=== PATIENT | female | born 1950 | race Caucasian/White ===

== ENCOUNTER 2021-08-18 04:03 | Observation (INO) | payer OTHER ==
[~2021-08-18] VITALS: Ht 170.2 cm; Wt 80.7 kg
[~2021-08-18 04:03] MED LIST: ACET-73 PO; GLUMETZA; GLYB5TAB4 PO; IBUP-1970 PO; ROSU20TA2 PO; VALS40TA6 PO
[2021-08-18 04:14] VITALS: BP_SYST 165
--- NOTE | 2021-08-18 04:14 | NUR ---
Patient to ER bed 7 to gown for evaluation. Side rails up. Triage at the bedside by Shaista LEMONS
[2021-08-18] MEDS ORDERED: OXYMETAZOLINE HCL 0.05% NASAL SPRAY NS ONE ×2 (04:15→04:21)
--- NOTE | 2021-08-18 04:20 | NUR ---
DR. AMOS AT BEDSIDE.
--- NOTE | 2021-08-18 04:29 | NUR ---
DR. AMOS AT BEDSIDE GIVING MEDICATION.
--- NOTE | 2021-08-18 04:34 | NUR ---
SECOND TAMPONADE/NASAL PACKING INTO LEFT NARE PLACED BY DR. AMOS. ONE TAMPONADE/NASAL PACKING REMAINS IN RIGHT NARE.
--- NOTE | 2021-08-18 04:48 | NUR ---
BLOOD SUGAR 92. DR. AMOS AWARE.
--- NOTE | 2021-08-18 05:21 | NUR ---
PATIENT MAINTAINS NO SIGNS OF ACTIVE BLEEDING AT THIS TIME. TRANSFERRED TO BED 5 WITHOUT INCIDENT.
--- NOTE | 2021-08-18 07:33 | NUR ---
RECEIVED REPORT FROM CRISTO VALDEZ. PATIENT WAITING TO BE SEEN BY DR GREGORY AT 0800.
[2021-08-18] MEDS ORDERED: ONDANSETRON HCL 4 MG/2 ML VIAL IVP PRN (09:00)
--- NOTE | 2021-08-18 09:05 | NUR ---
covid swab done. walked to lab.
[2021-08-18] MEDS ORDERED: DULA3PEN (09:17)
[2021-08-18] MEDS ORDERED: ASPI-989 PO (09:17)
[2021-08-18] MEDS ORDERED: BUSP5TAB3 PO (09:17)
[2021-08-18] MEDS ORDERED: AMLO2.5T2 PO (09:17)
[2021-08-18] MEDS ORDERED: CHLO25TA2 PO (09:17)
[2021-08-18] MEDS ORDERED: METF-833 PO (09:17)
[2021-08-18] MEDS ORDERED: CARV6.2554 PO (09:17)
[2021-08-18] MEDS ORDERED: INSNLG7030 SUBCUT (09:21)
[2021-08-18 09:22] LABS: BASOPHILS # (AUTO) 0.1 K/uL (0.0-0.2); BASOPHILS % (AUTO) 0.7 % (0.0-2.0); EOSINOPHILS # (AUTO) 0.2 K/uL (0.0-0.4); EOSINOPHILS % (AUTO) 1.9 % (0.0-4.0); HEMATOCRIT 36.7 % (36-48); HEMOGLOBIN 12.7 g/dL (12.0-16.0); LYMPHOCYTES % (AUTO) 22.7 % (20.5-51.5); MEAN CORPUSCULAR HEMOGLOBIN 30 pg (27-31); MEAN CORPUSCULAR HGB CONC 35 % (32-36); MEAN CORPUSCULAR VOLUME 86 fL (79.0-98.0); MONOCYTES # (AUTO) 0.3 K/uL (0.0-1.0); MONOCYTES % (AUTO) 3.9 % (1.7-9.3); NEUTROPHILS # (AUTO) 6.3 K/uL (1.8-7.7); NEUTROPHILS % (AUTO) 70.8 % (40.0-70.0); PLATELET COUNT (AUTO) 148 K/uL (130-430); RED BLOOD CELL COUNT(AUTO) 4.28 MIL/uL (4.2-6.2); RED CELL DISTRIBUTION WIDTH 13.9 % (9.0-15.0); WHITE BLOOD COUNT (AUTO) 8.9 K/uL (4.8-10.8)
--- NOTE | 2021-08-18 09:23 | NUR ---
Admit bed requested Patient will be admitted to care of . Admitted to telemetry unit. Diagnosis Epistaxis Inpatient (Yes or No) y Observation (Yes or No) n Orientation concerns or request close to nursing station (Yes or No) n Covid Status pending On vent or bipap n Isolation requirements n Needs a sitter n From Home (Yes or if No enter name of facility) home Requires Dialysis (Yes or No) n Med Rec Completed (Yes of No) yes
[2021-08-18 09:43] LABS: PROTHROMBIN TIME 10.9 SECS (9.5-12.5)
[2021-08-18 09:52] LABS: CREATININE 1.08 mg/dL (0.55-1.30); POTASSIUM 3.8 mmol/L (3.5-5.1)
--- NOTE | 2021-08-18 13:14 | NUR ---
Patient will be admitted to care of DR GREGORY. Admitted to [facility] unit. Will go to room 100B. Belongings list completed. Complete and up to date summary report printed. SBAR report to be given at bedside with opportunity for questions.
[2021-08-18 13:33] VITALS: BP_SYST 135
--- NOTE | 2021-08-18 13:45 | NUR ---
Opening Notes Received patient via [facility], stable at this time. Pt is ambulatory, able to transfer from [facility] to bed, steady gait. Pt is awake, alert and oriented x4. No resp distress noted. Breathing is even and unlabored, RA. Pt denies any pain at this time. No signs of epistaxis, no abnormal bleeding noted. IV site on left wrist 20 gauge intact, saline lock, C/D/I. Pt was educated on use of call light and to ask for help when needed. Pt successful in return demo. Pt is noted with left undereye sutures d/t s/p lesion removal, sutures are C/D/I. All needs met at this time. Safety and fall precautions in place. Bed in lowest position, locked. Will continue to monitor.
[2021-08-18] MEDS ORDERED: amLODIPine BESYLATE 5 MG TABLET PO ONE (14:45)
[2021-08-18] MEDS ORDERED: CARVEDILOL 6.25 MG TABLET (COREG) PO ONE (14:45)
[2021-08-18] MEDS ORDERED: CHLORTHALIDONE 25 MG TABLET (HYGROTON) PO ONE (15:00)
[2021-08-18 16:00] VITALS: BP_SYST 133
--- NOTE | 2021-08-18 16:00 | NUR ---
Notes Patient is sitting up in bed, resting. No signs of epistaxis/abnormal bleeding. No resp distress noted. Breathing is even and unlabored. Pt denies any pain. Grand daughter by bedside. Will continue to monitor.
[2021-08-18] MEDS: INSULIN REGULAR, HUMAN 100 UNITS/ML, 10 ML VIAL (humuLIN R) SUBCUT PRN ×2 (17:40→22:27)
--- NOTE | 2021-08-18 18:55 | NUR ---
Closing Notes Patient is awake, alert and oriented x4. No resp distress noted. Breathing is even and unlabored, RA. Pt denies any pain at this time. Granddaughter by bedside. No signs of epistaxis/abnormal bleeding. IV site on left wrist 20 gauge intact. No needs at this time. Pending labs tomorrow. All needs met. Safety and fall precautions in place. Bed in lowest position, alarm on, locked. Will continue to monitor.
[2021-08-18 20:00] VITALS: BP_SYST 128
[2021-08-18] MEDS ORDERED: ROSUVASTATIN CALCIUM 5 MG/TAB (CRESTOR) PO SCH (21:00)
[2021-08-18] MEDS ORDERED: ATORVASTATIN 20 MG TABLET PO SCH (21:00)
[2021-08-18] MEDS: CARVEDILOL 6.25 MG TABLET (COREG) PO SCH (22:23)
[2021-08-19 06:22] VITALS: BP_SYST 120
[2021-08-19 06:22] LABS: BASOPHILS % (AUTO) 0.4 % (0.0-2.0); EOSINOPHILS # (AUTO) 0.2 K/uL (0.0-0.4); EOSINOPHILS % (AUTO) 2.7 % (0.0-4.0); HEMATOCRIT 34.9 % (36-48); HEMOGLOBIN 12.2 g/dL (12.0-16.0); LYMPHOCYTES % (AUTO) 35.6 % (20.5-51.5); MEAN CORPUSCULAR HEMOGLOBIN 30 pg (27-31); MEAN CORPUSCULAR HGB CONC 35 % (32-36); MEAN CORPUSCULAR VOLUME 85 fL (79.0-98.0); MONOCYTES # (AUTO) 0.4 K/uL (0.0-1.0); MONOCYTES % (AUTO) 6.7 % (1.7-9.3); NEUTROPHILS # (AUTO) 3.1 K/uL (1.8-7.7); NEUTROPHILS % (AUTO) 54.6 % (40.0-70.0); PLATELET COUNT (AUTO) 126 K/uL (130-430); RED BLOOD CELL COUNT(AUTO) 4.12 MIL/uL (4.2-6.2); WHITE BLOOD COUNT (AUTO) 5.7 K/uL (4.8-10.8)
[2021-08-19 06:44] LABS: CALCIUM 9.1 mg/dL (8.4-11.0); CREATININE 1.01 mg/dL (0.55-1.30); PHOSPHORUS 3.9 mg/dL (2.7-4.5); POTASSIUM 3.8 mmol/L (3.5-5.1)
[2021-08-19 08:14] VITALS: BP_SYST 112
[2021-08-19] MEDS ORDERED: amLODIPine BESYLATE 5 MG TABLET PO SCH (09:00)
[2021-08-19] MEDS ORDERED: CHLORTHALIDONE 25 MG TABLET (HYGROTON) PO SCH (09:00)
[2021-08-19] MEDS: CARVEDILOL 6.25 MG TABLET (COREG) PO SCH (09:48)
[2021-08-19 11:20] VITALS: BP_SYST 112
--- NOTE | 2021-08-19 13:52 | NUR ---
Patient was DC, stable. No episodes of nose bleeding or chest pain. patients sutures removed. No complaints, education given and understood.
== END 2021-08-19 11:35 | disposition home or self-care (01) ==
LOC: SED 04:03 → STU 09:00 → INTOOBSV 09:00 → STU 11:28 → SMU 11:45
PROVIDERS: ADMIT Student in an Organized Health Care Education/Training Program; ATTEND Student in an Organized Health Care Education/Training Program
DX: R04.0 Epistaxis (principal); Z20.822 Contact with and (suspected) exposure to COVID-19; I10 Essential (primary) hypertension; E11.9 Type 2 diabetes mellitus without complications; E78.5 Hyperlipidemia, unspecified; F41.9 Anxiety disorder, unspecified; Z79.82 Long term (current) use of aspirin; Z79.899 Other long term (current) drug therapy
CPT/HCPCS: 36415 ×2; 80048 ×2; 82962 ×2; 83735; 84100; 85025 ×2; 85610; 85730; 87426; 99284; G0378; J1815

== ENCOUNTER 2022-08-30 14:12 | Emergency (ER) | payer OTHER ==
[~2022-08-30] VITALS: Ht 172.7 cm; Wt 76.2 kg
[~2022-08-30 14:12] MED LIST changes: -ACET-73 PO; +AMLO2.5T2 PO; +ASPI-989 PO; +BUSP5TAB3 PO; +CARV6.2554 PO; +CHLO25TA2 PO; +DULA3PEN; -GLUMETZA; -GLYB5TAB4 PO; -IBUP-1970 PO; +INSNLG7030 SUBCUT; +METF-833 PO; -VALS40TA6 PO
[2022-08-30 14:15] VITALS: BP_SYST 137; PULSE 80; RESP 18; TEMP 97.3; O2SAT 99
[2022-08-30] MEDS ORDERED: ONDANSETRON HCL 4 MG/2 ML VIAL IVP ONE ×2 (15:45→17:15)
[2022-08-30] MEDS ORDERED: NACL 0.9% 1,000 ML IV ONE (15:45)
[2022-08-30] MEDS ORDERED: MORPHINE 4 MG INJ. 4 MG/ML VIAL IVP ONE ×2 (15:45→17:15)
[2022-08-30 16:09] LABS: BILIRUBIN,URINE NEGATIVE (NEGATIVE); COLOR,URINE YELLOW (YELLOW); GLUCOSE,URINE NEGATIVE (NEGATIVE); KETONES,URINE NEGATIVE (NEGATIVE); NITRITE, URINE NEGATIVE (NEGATIVE); PROTEIN URINE NEGATIVE (NEGATIVE); UROBILINOGEN,URINE 0.2 (0.2-1.0)
[2022-08-30 16:17] LABS: BLOOD, URINE TRACE (NEGATIVE); CLARITY/URINE HAZY (CLEAR)
[2022-08-30 16:18] LABS: BACTERIA,URINE FEW /HPF (None Seen); LEUKOCYTE ESTERASE ,URINE TRACE (NEGATIVE); MUCUS,URINE None Seen /LPF (None Seen); RBC,URINE 0-3 /HPF (0-3)
[2022-08-30 16:21] LABS: BASOPHILS % (AUTO) 0.5 % (0.0-2.0); EOSINOPHILS # (AUTO) 0.1 K/uL (0.0-0.4); HEMOGLOBIN 13.4 g/dL (12.0-16.0); LYMPHOCYTES # (AUTO) 1.8 K/uL (1.0-5.5); LYMPHOCYTES % (AUTO) 21.8 % (20.5-51.5); MEAN CORPUSCULAR HEMOGLOBIN 28 pg (27-31); MEAN CORPUSCULAR HGB CONC 33 % (32-36); MEAN CORPUSCULAR VOLUME 87 fL (79.0-98.0); MONOCYTES # (AUTO) 0.5 K/uL (0.0-1.0); MONOCYTES % (AUTO) 5.7 % (1.7-9.3); NEUTROPHILS # (AUTO) 5.9 K/uL (1.8-7.7); PLATELET COUNT (AUTO) 124 K/uL (130-430); RED BLOOD CELL COUNT(AUTO) 4.72 MIL/uL (4.2-6.2); WHITE BLOOD COUNT (AUTO) 8.3 K/uL (4.8-10.8)
[2022-08-30 16:31] LABS: ALANINE AMINOTRANSFERASE 16 U/L (12-78); ALBUMIN 3.8 g/dL (3.4-4.8); ANION GAP 6 (5-15); ASPARTATE AMINOTRANSFERASE 18 U/L (10-37); CALCIUM 9.3 mg/dL (8.4-11.0); CHLORIDE 104 mmol/L (98-107); CREATININE 1.34 mg/dL (0.55-1.30); GLUCOSE 127 mg/dL (74-106); TOTAL BILIRUBIN 0.7 mg/dL (0.0-1.0); UREA NITROGEN, BLOOD 15 mg/dL (8-21)
[2022-08-30 16:32] LABS: GFR AFRICAN AMERICAN 50 mL/min (>90)
[2022-08-30] MEDS ORDERED: CEPH-548 PO (17:14)
[2022-08-30] MEDS ORDERED: cephALEXin 500 MG CAPSULE PO ONE (17:15)
[2022-08-30] MEDS ORDERED: PHE25 PO (17:22)
[2022-08-30] MEDS ORDERED: METOCLOPRAMIDE HCL 10 MG/2 ML VIAL IVP ONE (17:30)
[2022-08-30 18:18] VITALS: BP_SYST 148; PULSE 85; RESP 21; TEMP 97.8; O2SAT 98
== END 2022-08-30 18:18 | disposition home or self-care (01) ==
LOC: SED 14:12
DX: N39.0 Urinary tract infection, site not specified (principal); G89.29 Other chronic pain; R42 Dizziness and giddiness; E86.0 Dehydration; R11.0 Nausea; E11.9 Type 2 diabetes mellitus without complications; I10 Essential (primary) hypertension; Z79.4 Long term (current) use of insulin; Z79.899 Other long term (current) drug therapy; Z20.822 Contact with and (suspected) exposure to COVID-19
CPT/HCPCS: 99285; 96374; 96375; 70450; 71045; 96361; 87426; 80053; 81000; 83880; 85025; 84484; 36415; 93005; 76376; 87804 ×2; J2765; J2405; J2270; J7030

== ENCOUNTER 2022-09-18 14:23 | Emergency (ER) | payer OTHER ==
[~2022-09-18] VITALS: Ht 170.2 cm; Wt 76.2 kg
[2022-09-18 14:23] VITALS: BP_SYST 116; PULSE 75; RESP 18; TEMP 97.8; O2SAT 98
[~2022-09-18 14:23] MED LIST changes: +CEPH-548 PO; +PHE25 PO
--- NOTE | 2022-09-18 15:06 | NUR ---
Patient coming from home BIB daughter. Chief Complaint: Panic attacks change of RX x2d to effexor unknown dosage and atarax 25mg at 10am. Patient reports taking xanax at 10am this am dosage 0.5 mg due to panic attack return. Patient reports feeling nauseated. Patient reports having an epidural for back pain wednesday, currently having back pain 08/31. Patient placed in bed with rails up and placed on monitor.
[2022-09-18 15:10] VITALS: BP_SYST 160; PULSE 70; TEMP 96.9; O2SAT 97
--- NOTE | 2022-09-18 15:13 | NUR ---
ER Dr. Gil at bedside examining patient.
[2022-09-18] MEDS ORDERED: METOCLOPRAMIDE HCL 10 MG TABLET PO ONE (15:30)
[2022-09-18] MEDS ORDERED: LORazepam 2 MG/ML VIAL IM ONE (15:30)
--- NOTE | 2022-09-18 15:37 | NUR ---
Per Dr. Gil order, patient given Reglan 5mg and Ativan 1mg. Patient denies allergies to these medications, states allergy to Sulfa medications. Patient agreed to the administration prior to giving. Patient tolerated well.
[2022-09-18] MEDS ORDERED: ALPRAZolam 0.25 MG TABLET PO ONE (16:00)
--- NOTE | 2022-09-18 16:16 | NUR ---
Patient states ready to go home. Dr. Gil notified. Dr. Gil requested hold of the Xanax order. Documentation input.
--- NOTE | 2022-09-18 16:20 | NUR ---
Patient given written and verbal discharge instructions and verbalizes understanding. ER MD Gli discussed with patient the results and treatment provided. Patient in stable condition. ID arm band removed. Patient educated on pain management and to follow up with PMD. Opportunity for questions provided and answered. Medication side effect fact sheet provided.
== END 2022-09-18 16:20 | disposition home or self-care (01) ==
LOC: SED 14:23
DX: F41.9 Anxiety disorder, unspecified (principal); R11.0 Nausea; E11.9 Type 2 diabetes mellitus without complications; I10 Essential (primary) hypertension; Z79.4 Long term (current) use of insulin; Z79.899 Other long term (current) drug therapy
CPT/HCPCS: 99283; 96372; J8597; J2060

== ENCOUNTER 2023-05-26 10:53 | Emergency (ER) | payer MEDICARE, OTHER ==
[~2023-05-26] VITALS: Ht 170.2 cm; Wt 89.8 kg
[2023-05-26 11:04] VITALS: BP_SYST 141; PULSE 89; RESP 16; TEMP 97.3; O2SAT 96
[2023-05-26] MEDS: ACETAMINOPHEN 325 MG TABLET PO ONE (13:07)
[2023-05-26 13:10] VITALS: BP_SYST 129; PULSE 65; RESP 17; TEMP 97.7; O2SAT 98
== END 2023-05-26 13:17 | disposition home or self-care (01) ==
LOC: SED 10:53
DX: S63.91XA Sprain of unspecified part of right wrist and hand, initial encounter (principal); S63.92XA Sprain of unspecified part of left wrist and hand, initial encounter; S50.12XA Contusion of left forearm, initial encounter; E11.9 Type 2 diabetes mellitus without complications; I10 Essential (primary) hypertension; Z90.49 Acquired absence of other specified parts of digestive tract; Z90.710 Acquired absence of both cervix and uterus; W18.39XA Other fall on same level, initial encounter; Y93.89 Activity, other specified; Y92.89 Other specified places as the place of occurrence of the external cause; Y99.8 Other external cause status
CPT/HCPCS: 73090; 99284

== ENCOUNTER 2023-07-18 21:46 | Inpatient (IN) | payer MEDICARE ==
[~2023-07-18] VITALS: Ht 170.2 cm; Wt 88.9 kg
[2023-07-18 22:00] VITALS: BP_SYST 101; PULSE 67; RESP 20; TEMP 97; O2SAT 95
[2023-07-18 22:37] LABS: BILIRUBIN,URINE NEGATIVE (NEGATIVE); BLOOD, URINE NEGATIVE (NEGATIVE); CLARITY/URINE CLEAR (CLEAR); COLOR,URINE YELLOW (YELLOW); GLUCOSE,URINE NEGATIVE (NEGATIVE); KETONES,URINE TRACE (NEGATIVE); LEUKOCYTE ESTERASE ,URINE 2+ (NEGATIVE); NITRITE, URINE NEGATIVE (NEGATIVE); PROTEIN URINE TRACE (NEGATIVE)
[2023-07-18 22:47] LABS: BACTERIA,URINE RARE /HPF (None Seen); RBC,URINE 0-3 /HPF (0-3)
[2023-07-18 22:48] LABS: MUCUS,URINE 1+ /LPF (None Seen)
[2023-07-18 23:13] LABS: BASOPHILS # (AUTO) 0.2 K/uL (0.0-0.2); BASOPHILS % (AUTO) 1.9 % (0.0-2.0); EOSINOPHILS # (AUTO) 0.2 K/uL (0.0-0.4); EOSINOPHILS % (AUTO) 2.5 % (0.0-4.0); HEMATOCRIT 41.2 % (36-48); HEMOGLOBIN 14.1 g/dL (12.0-16.0); LYMPHOCYTES # (AUTO) 1.7 K/uL (1.0-5.5); LYMPHOCYTES % (AUTO) 20.3 % (20.5-51.5); MEAN CORPUSCULAR HEMOGLOBIN 29 pg (27-31); MEAN CORPUSCULAR HGB CONC 34 % (32-36); MEAN CORPUSCULAR VOLUME 85 fL (79.0-98.0); MONOCYTES # (AUTO) 0.5 K/uL (0.0-1.0); MONOCYTES % (AUTO) 5.9 % (1.7-9.3); NEUTROPHILS # (AUTO) 5.8 K/uL (1.8-7.7); NEUTROPHILS % (AUTO) 69.4 % (40.0-70.0); PLATELET COUNT (AUTO) 99 K/uL (130-430); RED BLOOD CELL COUNT(AUTO) 4.85 MIL/uL (4.2-6.2); RED CELL DISTRIBUTION WIDTH 14.7 % (9.0-15.0); WHITE BLOOD COUNT (AUTO) 8.3 K/uL (4.8-10.8)
[2023-07-18 23:28] LABS: ALANINE AMINOTRANSFERASE 23 U/L (12-78); ANION GAP 10 (5-15); ASPARTATE AMINOTRANSFERASE 37 U/L (10-37); BILIRUBIN,DIRECT 0.2 mg/dL (0.0-0.3); CALCIUM 9.4 mg/dL (8.4-11.0); CARBON DIOXIDE 27 mmol/L (23-29); CHLORIDE 103 mmol/L (98-107); CREATININE 1.32 mg/dL (0.55-1.30); GLUCOSE 136 mg/dL (74-106); LIPASE 40 U/L (16-77); POTASSIUM 3.8 mmol/L (3.5-5.1); SODIUM SERUM 140 mmol/L (136-145); TOTAL BILIRUBIN 0.7 mg/dL (0.0-1.0); TOTAL PROTEIN, SERUM 7.8 g/dL (6.4-8.3); UREA NITROGEN, BLOOD 18 mg/dL (8-21)
[2023-07-19] MEDS: METOCLOPRAMIDE HCL 10 MG/2 ML VIAL IVP ONE (01:15)
[2023-07-19] MEDS: cefTRIAXone 1 GM IVPB PREMIX 50 ML IV ONE (01:15)
[2023-07-19] MEDS: cefTRIAXone 1 GM in LIDOCAINE 1%, 20 ML MDV 2.1 ML IM ONE (01:16)
[2023-07-19] MEDS: LORazepam 2 MG/ML VIAL IVP ONE (01:23)
[2023-07-19] MEDS ORDERED: CARV12.548 PO (01:36)
[2023-07-19] MEDS ORDERED: CLON1TAB12 PO (01:36)
[2023-07-19] MEDS ORDERED: ASPI-1393 PO (01:36)
[2023-07-19] MEDS ORDERED: NIFE30TA2 PO (01:36)
[2023-07-19] MEDS ORDERED: INSU100V9 SUBCUT (01:36)
[2023-07-19] MEDS ORDERED: [UNRECOGNIZED DRUG - CODE] (01:36)
[2023-07-19] MEDS ORDERED: INSU100I4 SUBCUT (01:36)
[2023-07-19] MEDS ORDERED: METF-381 PO (01:36)
[2023-07-19] MEDS ORDERED: ROSU20TA73 PO (01:36)
[2023-07-19] MEDS ORDERED: NEU300 PO (07:05)
[2023-07-19] MEDS: METOCLOPRAMIDE HCL 10 MG/2 ML VIAL IVP PRN (08:03)
[2023-07-19 08:20] VITALS: BP_SYST 153; PULSE 76; RESP 16; TEMP 97.8; O2SAT 98
[2023-07-19 08:34] VITALS: BP_SYST 153; PULSE 76; RESP 19; TEMP 97.8; O2SAT 98
[2023-07-19] MEDS ORDERED: NALOXONE HCL 0.4 MG/ML AMP (NARCAN) IVP PRN ×2 (14:30)
[2023-07-19] MEDS ORDERED: HYDROcodone/ACETAMIN 5-325 MG TAB (NORCO/ VICODIN) PO PRN (14:30)
[2023-07-19] MEDS ORDERED: HYDROcodone/ACETAMIN 10-325 MG TAB PO PRN (14:30)
[2023-07-19] MEDS ORDERED: ACETAMINOPHEN 325 MG TABLET PO PRN (14:30)
[2023-07-19] MEDS ORDERED: PROMETHAZINE HCL 25 MG TABLET PO SCH (15:00)
[2023-07-19] MEDS ORDERED: clonazePAM 0.5 MG TABLET PO SCH (15:00)
[2023-07-19] MEDS: LORazepam 2 MG/ML VIAL IVP PRN (15:45)
[2023-07-19 16:00] VITALS: BP_SYST 146; PULSE 68; RESP 16; TEMP 98; O2SAT 98
[2023-07-19] MEDS: cephALEXin 500 MG CAPSULE PO SCH (16:51)
[2023-07-19] MEDS: ACETAMINOPHEN 325 MG TABLET PO PRN (16:52)
[2023-07-19 20:00] VITALS: BP_SYST 148; PULSE 75; RESP 18; TEMP 97.5; O2SAT 93
[2023-07-19] MEDS ORDERED: METFORMIN HCL PO SCH (21:00)
[2023-07-19] MEDS ORDERED: ROSUVASTATIN CALCIUM 5 MG/TAB (CRESTOR) PO SCH (21:00)
[2023-07-19] MEDS: GABAPENTIN 300 MG CAPSULE PO SCH (21:53)
[2023-07-19] MEDS: ATORVASTATIN 20 MG TABLET PO SCH (21:54)
[2023-07-19] MEDS: metFORMIN HCL 500 MG TABLET PO SCH (21:55)
[2023-07-19] MEDS: busPIRone HCL 5 MG TABLET PO SCH (21:55)
[2023-07-19] MEDS: NIFEdipine 30 MG TAB.ER.24 PO SCH (21:56)
[2023-07-19] MEDS: CARVEDILOL 12.5 MG TABLET (COREG) PO SCH (21:57)
[2023-07-19] MEDS: NORMAL SALINE 5 ML DISP.SYRIN IVF SCH (22:00)
[2023-07-20 00:28] VITALS: BP_SYST 148; PULSE 72; RESP 16; TEMP 97.9; O2SAT 98
[2023-07-20 04:23] LABS: BASOPHILS % (AUTO) 0.4 % (0.0-2.0); EOSINOPHILS # (AUTO) 0.1 K/uL (0.0-0.4); EOSINOPHILS % (AUTO) 2.3 % (0.0-4.0); HEMATOCRIT 37.3 % (36-48); HEMOGLOBIN 12.6 g/dL (12.0-16.0); LYMPHOCYTES # (AUTO) 2.4 K/uL (1.0-5.5); LYMPHOCYTES % (AUTO) 36.2 % (20.5-51.5); MEAN CORPUSCULAR HEMOGLOBIN 29 pg (27-31); MEAN CORPUSCULAR HGB CONC 34 % (32-36); MEAN CORPUSCULAR VOLUME 86 fL (79.0-98.0); MONOCYTES # (AUTO) 0.6 K/uL (0.0-1.0); MONOCYTES % (AUTO) 8.7 % (1.7-9.3); NEUTROPHILS # (AUTO) 3.5 K/uL (1.8-7.7); NEUTROPHILS % (AUTO) 52.4 % (40.0-70.0); PLATELET COUNT (AUTO) 105 K/uL (130-430); RED BLOOD CELL COUNT(AUTO) 4.33 MIL/uL (4.2-6.2); RED CELL DISTRIBUTION WIDTH 14.6 % (9.0-15.0); WHITE BLOOD COUNT (AUTO) 6.6 K/uL (4.8-10.8)
[2023-07-20 04:42] LABS: ANION GAP 12 (5-15); CARBON DIOXIDE 27 mmol/L (23-29); CHLORIDE 107 mmol/L (98-107); CREATININE 1.12 mg/dL (0.55-1.30); GLUCOSE 129 mg/dL (74-106); POTASSIUM 4.2 mmol/L (3.5-5.1); SODIUM SERUM 146 mmol/L (136-145); UREA NITROGEN, BLOOD 14 mg/dL (8-21)
[2023-07-20 08:00] VITALS: BP_SYST 149; PULSE 74; RESP 18; TEMP 97.7; O2SAT 98
[2023-07-20] MEDS: INSULIN GLARGINE 100 UNITS/ML, 10 ML VIAL SUBCUT SCH (09:00)
[2023-07-20] MEDS ORDERED: amLODIPine BESYLATE 5 MG TABLET PO SCH (09:00)
[2023-07-20] MEDS: CHLORTHALIDONE 25 MG TABLET (HYGROTON) PO SCH (09:00)
[2023-07-20] MEDS: ASPIRIN 81 MG TABLET(ECOTRIN) PO SCH (09:39)
[2023-07-20 12:00] VITALS: BP_SYST 136; PULSE 72; RESP 18; TEMP 97.2; O2SAT 98
[2023-07-20] MEDS: LOPERAMIDE HCL 2 MG CAPSULE PO PRN (18:37)
[2023-07-20 20:00] VITALS: BP_SYST 143; PULSE 70; RESP 18; TEMP 97.2; O2SAT 96
[2023-07-20] MEDS: INSULIN REGULAR, HUMAN 100 UNITS/ML, 3 ML VIAL (humuLIN R) SUBCUT PRN (22:20)
[2023-07-21 02:23] VITALS: BP_SYST 140; PULSE 64; RESP 18; TEMP 97.9; O2SAT 96
[2023-07-21 06:41] LABS: BASOPHILS % (AUTO) 0.3 % (0.0-2.0); EOSINOPHILS # (AUTO) 0.2 K/uL (0.0-0.4); EOSINOPHILS % (AUTO) 2.8 % (0.0-4.0); HEMATOCRIT 38.2 % (36-48); HEMOGLOBIN 13.2 g/dL (12.0-16.0); LYMPHOCYTES # (AUTO) 2.4 K/uL (1.0-5.5); LYMPHOCYTES % (AUTO) 33.1 % (20.5-51.5); MEAN CORPUSCULAR HEMOGLOBIN 30 pg (27-31); MEAN CORPUSCULAR HGB CONC 35 % (32-36); MEAN CORPUSCULAR VOLUME 86 fL (79.0-98.0); MONOCYTES # (AUTO) 0.6 K/uL (0.0-1.0); MONOCYTES % (AUTO) 8.4 % (1.7-9.3); NEUTROPHILS # (AUTO) 3.9 K/uL (1.8-7.7); NEUTROPHILS % (AUTO) 55.4 % (40.0-70.0); PLATELET COUNT (AUTO) 105 K/uL (130-430); RED BLOOD CELL COUNT(AUTO) 4.45 MIL/uL (4.2-6.2); RED CELL DISTRIBUTION WIDTH 14.5 % (9.0-15.0); WHITE BLOOD COUNT (AUTO) 7.1 K/uL (4.8-10.8)
[2023-07-21 06:44] LABS: ERYTHROCYTE SEDIMENTATION RATE 10 MM/HR (0-20)
[2023-07-21 06:46] LABS: ANION GAP 13 (5-15); CALCIUM 9.1 mg/dL (8.4-11.0); CARBON DIOXIDE 25 mmol/L (23-29); CHLORIDE 104 mmol/L (98-107); CREATININE 1.11 mg/dL (0.55-1.30); GLUCOSE 115 mg/dL (74-106); POTASSIUM 3.7 mmol/L (3.5-5.1); SODIUM SERUM 142 mmol/L (136-145); UREA NITROGEN, BLOOD 16 mg/dL (8-21)
[2023-07-21 08:00] VITALS: BP_SYST 136; PULSE 79; RESP 16; TEMP 97.1; O2SAT 95
[2023-07-21 11:07] VITALS: BP_SYST 121; PULSE 75; RESP 18; TEMP 98.4; O2SAT 100
[2023-07-21 12:12] VITALS: BP_SYST 115; PULSE 66; RESP 14; TEMP 97.6; O2SAT 98
[2023-07-21 13:05] VITALS: BP_SYST 98; PULSE 66; RESP 14; TEMP 97.6; O2SAT 74
== END 2023-07-21 14:45 | disposition home or self-care (01) | DRG 639 ==
LOC: SED 21:46 → SMU 07-19 00:15
PROVIDERS: ADMIT Preventive Medicine Preventive Medicine/Occupational Environmental Medicine; ATTEND Preventive Medicine Preventive Medicine/Occupational Environmental Medicine
DX: E11.65 Type 2 diabetes mellitus with hyperglycemia (principal); R42 Dizziness and giddiness; E78.5 Hyperlipidemia, unspecified; D69.6 Thrombocytopenia, unspecified; I10 Essential (primary) hypertension; Z90.49 Acquired absence of other specified parts of digestive tract; Z90.710 Acquired absence of both cervix and uterus; Z88.2 Allergy status to sulfonamides; Z79.899 Other long term (current) drug therapy; M54.30 Sciatica, unspecified side
CPT/HCPCS: 36415; 80048; 80076; 81000; 81001; 81015; 82948; 83605; 83690; 85025; 85651; 87040; 87086; 93005; 93880; 96365; 96375; 97112-GP; 97116-GP; 99285; J0696; J1815; J2060; J2765